=== PATIENT | male | born 1990 | race Hispanic/Latino ===

== ENCOUNTER 2017-10-10 00:08 | Emergency (ER) | payer SELFPAY ==
[2017-10-10] MEDS ORDERED: Promethazine 25 MG TAB ONE (00:57)
[2017-10-10] MEDS ORDERED: Lorazepam 1 MG TAB ONE (00:58)
[2017-10-10] MEDS ORDERED: diphenhydrAMINE 50 MG/ML VIAL ONE (00:58)
[2017-10-10] MEDS ORDERED: Ketorolac Tromethamine 60 MG/2 ML VIAL ONE (00:59)
[2017-10-10] MEDS ORDERED: diphenhydrAMINE 25 MG CAP ONE (00:59)
== END 2017-10-10 01:33 | disposition home or self-care (01) ==
LOC: NAV ERS 00:08
DX: R51 Headache (principal)
CPT/HCPCS: 96372; J1200; J1885